=== PATIENT | female | born 1965 | race Caucasian/White ===

== ENCOUNTER → 2016-08-14 | Outpatient (CLI) | payer OTHER ==
[2016-08-14 17:52] LABS: HEMATOCRIT 42.1 % (36.0-47.0); HEMOGLOBIN 13.8 g/dL (12.0-15.5); HGB HCT DIFFERENCE -0.7; MEAN CORPUSCULAR HEMOGLOBIN 29.4 pg (27.0-33.4); MEAN CORPUSCULAR HGB CONC 32.8 g/dL (32.0-36.0); MEAN CORPUSCULAR VOLUME 90 fl (80-97); RED CELL DISTRIBUTION WIDTH 14.1 % (11.5-14.0); WHITE BLOOD COUNT 8.5 10^3/uL (4.0-10.5)
[2016-08-14 18:03] LABS: ALANINE AMINOTRANSFERASE 18 U/L (9-52); ALBUMIN 4.3 g/dL (3.5-5.0); ALKALINE PHOSPHATASE 111 U/L (38-126); ANION GAP 12 (5-19); ASPARTATE AMINO TRANSFERASE 17 U/L (14-36); BILIRUBIN,DIRECT 0.3 mg/dL (0.0-0.4); BILIRUBIN,TOTAL 0.4 mg/dL (0.2-1.3); BLOOD UREA NITROGEN 12 mg/dL (7-20); CALCIUM 9.7 mg/dL (8.4-10.2); CARBON DIOXIDE 27 mmol/L (22-30); CHLORIDE 99 mmol/L (98-107); CREATININE RESULT 0.78 mg/dL (0.52-1.25); GLUCOSE 79 mg/dL (75-110); POTASSIUM 4.4 mmol/L (3.6-5.0); SODIUM 138.2 mmol/L (137-145); TOTAL PROTEIN 7.8 g/dL (6.3-8.2)
== END ==
LOC: OD 16:35
PROVIDERS: ATTEND Obstetrics & Gynecology
DX: E03.9 Hypothyroidism, unspecified (principal); E55.9 Vitamin D deficiency, unspecified; E78.5 Hyperlipidemia, unspecified; I10 Essential (primary) hypertension; E66.9 Obesity, unspecified
CPT/HCPCS: 36415; 80053; 82306; 83036; 84443; 85027

== ENCOUNTER 2018-09-12 03:39 | Emergency (ER) | payer OTHER ==
[2018-09-12] MEDS ORDERED: ADENOSINE INJ/PF 6 MG/2 ML SDV IV ONE (03:59)
[2018-09-12] MEDS ORDERED: NORMAL SALINE 1000 ML 1,000 ML IV ONE (04:00)
[2018-09-12] MEDS ORDERED: MIDAZOLAM 2 MG/2 ML INJ ONE (04:03)
--- NOTE | 2018-09-12 04:03 | ER Document Report ---
ED General - General Chief Complaint: Palpitations Stated Complaint: HEART PROBLEMS Time Seen by Provider: 09/12/18 03:51 Primary Care Provider: CIRILO LYNN MD [ACTIVE STAFF] - Follow up as needed Notes: Patient is a pleasant 53-year-old female presents with complaint of SVT. She has a long history of SVT. She says usually can break out of it with vagal maneuver but occasionally has to have adenosine. She denies any chest pain or shortness of breath. She does feels palpitations. She did recently start a wor kout routine. She is unsure if she could be dehydrated or potentially having electrolyte abnormality. No other complaints at this time. Symptoms started 2 AM. TRAVEL OUTSIDE OF THE [place] IN LAST 30 DAYS: No - Related Data Allergies/Adverse Reactions: sulfamethoxazole [From ] Allergy (Verified 09/09/11 06:43) trimethoprim [From ] Allergy (Verified 09/09/11 06:43) Past Medical History - Social History Smoking Status: Never Smoker Frequency of alcohol use: None Drug Abuse: None Family History: Reviewed & Not Pertinent Past Surgical History: Reports: Hx Section - x2, Hx Cholecystectomy, Hx Thyroid Surgery - Immunizations Hx Diphtheria, Pertussis, Tetanus Vaccination: - unk Review of Systems - Review of Systems Notes: My Normal Review Basic REVIEW OF SYSTEMS: CONSTITUTIONAL : Denies fever, chills, or sweats. Denies recent illness. EENT: Denies eye, ear, throat, or mouth pain or symptoms. Denies nasal or sinus congestion. CARDIOVASCULAR: Rapid Heartbeat RESPIRATORY: Denies cough, cold, or chest congestion. Denies shortness of breath, difficulty breathing, or wheezing. GASTROINTESTINAL: Denies abdominal pain. Denies nausea, vomiting, or diarrhea. Denies constipation. Last BM: MUSCULOSKELETAL: Denies neck or back pain or joint pain or swelling. SKIN: Denies rash or skin lesions. NEUROLOGICAL: Denies altered mental status or loss of consciousness. Denies sensory or motor loss. ALL OTHER SYSTEMS REVIEWED AND NEGATIVE. Physical Exam - Vital signs Vitals: Resp BP Pulse Ox 25 H 155/114 H 96 09/12/18 03:52 09/12/18 03:52 09/12/18 03:52 - Notes Notes: General Appearance: Well nourished, alert, cooperative, no acute distress, no obvious discomfort. Well-appearing Vitals: reviewed, See vital signs table. Eyes: PERRL, EOMI, Conjuctiva clear Mouth: No decreasd moisture Lungs: No wheezing, No rales, No rhonci, No accessory muscle use, good air exchange bilaterally. Heart: Tachycardic rate, Regular rythm, No murmur, no rub Abdomen: Normal BS, soft, No rigidity, No abdominal tenderness, No guarding, no rebound, no abdominal masses, no organomegaly Extremities:good pulses in all extremities, no swelling or tenderness in the extremities, no edema. Skin: warm, dry, appropriate color, no rash Neuro: speech clear, oriented x 3, normal affect, responds appropriately to questions. Course - Re-evaluation Re-evalutation: 09/12/18 04:19 we tried vagal maneuvers but unfortunate this did not convert the patient. I therefore gave the patient adenosine 6 mg IV. This converted patient on first attempt without any concerning dysrhythmia. Patient is feeling improved. We will recheck electrolytes to make sure there is no abnormality. We will continue to have patient on monitor. 09/12/18 05:07 Patient has had no recurrence of arrhythmia. Her heart rate is now in the 80s and she is normal sinus rhythm and she is asymptomatic and looks well. She did not have any concerning symptoms during her episode and that she was not having chest pain, she was not significantly short of breath, she really did not have passing out. At this time I feel she safe to be discharged home. I strongly encouraged her to continue take her medications as prescribed. Encourage return to ER if she has recurrent SVT, recurrent palpitations, any chest pain, difficulty breathing, or if she feels unwell. Patient agrees with plan and will be discharged home. Dictation of this chart was performed using voice recognition software; therefore, there may be some unintended grammatical errors. - Vital Signs Vital signs: Temp Pulse Resp BP Pulse Ox 20 149/101 H 94 09/12/18 04:45 09/12/18 04:45 09/12/18 04:45 - Laboratory Result Diagrams: 09/12/18 03:54 Laboratory results interpreted by me: 09/12/18 03:54 Glucose 115 H - EKG Interpretation by Me Additional EKG results interpreted by me: 09/12/18 04:03 EKG is reviewed and interpreted by me. EKG shows SVT with rate of [address] segment elevation or depression. QRS duration and QT intervals are within normal range. No old EKG available for comparison. 09/12/18 04:28 EKG #2 is post adenosine administration. EKG shows sinus rhythm with a rate of [address] segment elevation or depression. No ischemic T wave inversions. WA interval, QRS duration, QTc intervals are within normal range. Discharge - Discharge Clinical Impression: SVT (supraventricular tachycardia) Condition: Good Disposition: HOME, SELF-CARE Additional Instructions: Your electrolytes are normal. No concerning findings on your blood work. Please continue take your medication for your SVT. Please stay well-hydrated. Please have a low threshold to return to the ER if you have chest pain, recurrent palpitations, difficulty breathing, or if you feel unwell. Referrals: CIRILO LYNN MD [ACTIVE STAFF] - Follow up in 3-5 days
[2018-09-12 04:19] LABS: ANION GAP 9 (5-19); BLOOD UREA NITROGEN 9 mg/dL (7-20); CALCIUM 9.9 mg/dL (8.4-10.2); CARBON DIOXIDE 25 mmol/L (22-30); CHLORIDE 107 mmol/L (98-107); GLUCOSE 115 mg/dL (75-110); POTASSIUM 4.2 mmol/L (3.6-5.0)
[2018-09-12 05:25] VITALS: BP 130/96
--- NOTE | 2018-09-12 11:12 | EKG REPORT ---
SEVERITY:- BORDERLINE ECG - SINUS TACHYCARDIA BORDERLINE RIGHT AXIS DEVIATION MINIMAL ST DEPRESSION, ANTEROLATERAL LEADS : Confirmed by: Ana Rodriguez MD 12-Sep-2018 11:11:46
--- NOTE | 2018-09-13 09:25 | EKG REPORT ---
SEVERITY:- OTHERWISE NORMAL ECG - SINUS RHYTHM RIGHT AXIS DEVIATION : Confirmed by: Ana Rodrigeuz MD 13-Sep-2018 09:25:08
== END 2018-09-12 05:30 | disposition home or self-care (01) ==
LOC: ER 03:39
DX: I47.1 Supraventricular tachycardia (principal); R00.2 Palpitations
CPT/HCPCS: 93005; 99285; 96374; 36415; 83735; 80048; 93010; J7030; J0153

== ENCOUNTER 2019-04-18 01:29 | Emergency (ER) | payer OTHER | END 2019-04-18 03:00 | disposition left against medical advice (07) | LOC: ER 01:29 | DX: Z53.21 Procedure and treatment not carried out due to patient leaving prior to being seen by health care provider (principal) ==

== ENCOUNTER 2019-04-18 03:38 | Emergency (ER) | payer OTHER ==
[2019-04-18] MEDS ORDERED: TRANEXAMIC ACID INJ/PF 1,000 MG/10 ML SDV IV ONE (05:08)
[2019-04-18] MEDS ORDERED: NORMAL SALINE 1000 ML 1,000 ML IV ONE (05:09)
--- NOTE | 2019-04-18 05:10 | ER Document Report ---
ED GI/ - General TRAVEL OUTSIDE OF THE [place] IN LAST 30 DAYS: No <NANCY FAYE - Last Filed: 04/18/19 08:18> <BRIGIDA MESSER - Last Filed: 04/18/19 14:51> - General Chief Complaint: Vaginal Bleeding Stated Complaint: VAGINAL BLEEDING Time Seen by Provider: 04/18/19 04:59 Primary Care Provider: [facility] [Provider Group] - Follow up in 3-5 days SERAFIN VEE MD [ACTIVE STAFF] - 04/19/19 PÉREZ LYNN NP [Primary Care Provider] - Follow up as needed Notes: Patient is a 53-year-old female that comes to the emergency department for chief complaint of heavy vaginal bleeding. She comes by EMS. She states that she started suddenly bleeding at 10 PM tonight, she states that since then she has bled through 12 super pads, she states she started getting lightheaded and became concerned. She has passed a lot of clots. She denies passing out. She reports mild cramping in the lower abdomen but denies severe pain. Her last menstrual cycle was last October. She is on aspirin but no other blood thinners. Remaining medical history includes hypertension, C-sections, cholecystectomy, thyroidectomy. (NANCY FAYE) - Related Data Allergies/Adverse Reactions: sulfamethoxazole [From Septra] Allergy (Verified 09/09/11 06:43) trimethoprim [From Septra] Allergy (Verified 09/09/11 06:43) Past Medical History - General Information source: Patient - Social History Smoking Status: Never Smoker Frequency of alcohol use: None Drug Abuse: None Lives with: Family Family History: Reviewed & Not Pertinent Patient has suicidal ideation: No Patient has homicidal ideation: No - Past Medical History Cardiac Medical History: Reports: Hx Hypertension Endocrine Medical History: Reports: Hx Hypothyroidism Renal/ Medical History: Denies: Hx Peritoneal Dialysis Past Surgical History: Reports: Hx Section - x2, Hx Cholecystectomy, Hx Thyroid Surgery - Immunizations Hx Diphtheria, Pertussis, Tetanus Vaccination: Yes - unk <NANCY FAYE - Last Filed: 04/18/19 08:18> Review of Systems - Review of Systems Constitutional: No symptoms reported EENT: No symptoms reported Cardiovascular: See HPI Respiratory: No symptoms reported Gastrointestinal: See HPI Genitourinary: No symptoms reported Female Genitourinary: See HPI Musculoskeletal: No symptoms reported Skin: No symptoms reported Hematologic/Lymphatic: No symptoms reported Neurological/Psychological: No symptoms reported <NANCY FAYE - Last Filed: 04/18/19 08:18> Physical Exam <NANCY FAYE - Last Filed: 04/18/19 08:18> - Vital signs Vitals: Pulse Ox 96 04/18/19 03:47 - Notes Notes: GENERAL: Alert, interacts well. No acute distress. HEAD: Normocephalic, atraumatic. EYES: Pupils equal, round, and reactive to light. Extraocular movements intact. ENT: Oral mucosa moist, tongue midline. Oropharynx unremarkable. Airway patent. LUNGS: Clear to auscultation bilaterally, no wheezes, rales, or rhonchi. No respiratory distress. HEART: Regular rate and rhythm. No murmur ABDOMEN: Soft, non-tender. Non-distended. Bowel sounds present in all 4 quadrants. GENITOURINARY: Clots intravaginally noted, minimal bleeding noted from what appears to be the cervix, no current heavy bleeding. No cervical motion tenderness or concerning findings otherwise. No discharge. Exam performed with Amanda BAZZI at bedside. EXTREMITIES: Moves all 4 extremities spontaneously. No edema, normal radial and dorsalis pedis pulses bilaterally. No cyanosis. BACK: no cervical, thoracic, lumbar midline tenderness. No saddle anesthesia, normal distal neurovascular exam. NEUROLOGICAL: Alert and oriented x3. Normal speech. Cranial nerves II through XII grossly intact. PSYCH: Normal affect, normal mood. SKIN: Warm, dry, normal turgor. No rashes or lesions noted. (NANCY FAYE) Course - Laboratory Result Diagrams: 04/18/19 06:00 04/18/19 06:00 <NANCY FAYE - Last Filed: 04/18/19 08:18> - Laboratory Result Diagrams: 04/18/19 09:19 04/18/19 06:00 - Diagnostic Test Radiology reviewed: Reports reviewed - EKG Interpretation by Me EKG shows normal: Sinus rhythm When compared to previous EKG there are: No significant change <BRIGIDA MESSER - Last Filed: 04/18/19 14:51> - Re-evaluation Re-evalutation: Patient is well-appearing, she is not hypotensive, she was given IV fluids and TXA. Shortly after this we perform pelvic exam, she does have some clots intravaginally but she does not have any noted current bleeding. CBC with unremarkable hemoglobin, nonspecific otherwise. Chemistry unremarkable. 04/18/19 We are still pending ultrasound results. On reevaluation patient is having some cramping, she states bleeding has slightly resumed as well after the ultrasound. Medication, CBC will be trended because of the amount of bleeding patient had tonight, results pending. Patient was introduced to Maya ESCOBAR at bedside. (NANCY FAYE) 04/18/19 10:[address] Ray regarding the patient's presentation ultrasound and laboratory studies. Dr. Ray recommends giving patient Provera 10 mg daily for 30 days and having her follow-up in the office for further evaluation. Provider to bedside to discuss plan of care with patient. Patient states that shortly after receiving the IV morphine she started to have chest discomfort. Patient states she looked at the monitor and it had an regular tracing to the monitor. Patient states she called out to let the nurse know at the time. This is the first time I have been made aware of patient's symptoms. Patient states she does have a burning sensation in her chest at this time. Provider reviewed alarms at the desk with escrow secretary and patient has only had respiratory rate alarms go off. Patient was advised that if she was moving to look at the monitor the movement could cause artifact making the tracing appear irregular. Patient without any previous arrhythmias noted on her EKG tracing. Will add on troponin and cardiac enzyme testing at this time. Patient does state that it c ould be that she has not eaten anything and that this is causing her to have some discomfort. Patient advised that she can have something to eat if she would like. 04/18/19 11:58 Patient reports that pain symptoms resolved after GI cocktail. Vital signs continue stable at this time. Presently awaiting results of troponin test. EKG reviewed without any acute changes. Chest x-ray reviewed without any acute findings. 04/18/19 12:47 Patient's troponin without any elevation, patient with improved symptoms after GI cocktail. Patient states that she could be having the discomfort due to not having anything to eat today. Patient with stable vital signs. Patient agreeable with discharge plan of care at this time. 04/18/19 12:49 Presentation of chest pain in an otherwise well appearing patient. Low clinical suspicion for ACS given clinical history, exam, EKG without ST elevations, and negative initial troponin. HEART score less than or equal to 3. PE also seems unlikely given clinical history, absence of tachycardia or dyspnea. Patient is PERC criteria negative. CXR without evidence of pneumothorax or pneumonia. Chest pain in a patient without evidence of cardiac or other serious etiology on workup today. I discussed with patient that, based on their age, risk factors and emergency department testing today, the likelihood that their symptoms are related to a heart attack is very low. The patient demonstrates decision making capacity and has verbalized an understanding of these risks to me. Based on this, the patient has chosen to follow-up as an outpatient. Usual chest pain return precautions reviewed. The patient states understanding and agreement with this plan. (BRIGIDA MESSER) - Vital Signs Vital signs: Temp Pulse Resp BP Pulse Ox 23 H 135/86 H 95 04/18/19 13:01 04/18/19 13:01 04/18/19 13:01 - Laboratory Laboratory results interpreted by me: 04/18/19 04/18/19 06:00 09:19 WBC 11.3 H Hct 35.9 L RDW 14.2 H 14.2 H Absolute Neuts (auto) 8.4 H 04/18/19 12:47 Labs- Entire Visit 04/18/19 04/18/19 04/18/19 06:00 06:00 06:00 WBC 11.3 H RBC 4.20 Hgb 13.0 Hct 37.7 MCV 90 MCH 30.9 MCHC 34.4 RDW 14.2 H Plt Count 222 Lymph % (Auto) 17.5 [place] % (Auto) 6.6 Eos % (Auto) 1.2 Baso % (Auto) 0.4 Absolute Neuts (auto) 8.4 H Absolute Lymphs (auto) 2.0 Absolute Monos (auto) 0.7 Absolute Eos (auto) 0.1 Absolute Basos (auto) 0.0 Seg Neutrophils % 74.3 Sodium 139.9 Potassium 4.3 Chloride 104 Carbon Dioxide 28 Anion Gap 8 BUN 16 Creatinine 0.88 Est GFR ( Amer) > 60 Est GFR (MDRD) Non-Af > 60 Glucose 108 Calcium 9.7 Total Bilirubin 0.3 Direct Bilirubin 0.3 Neonat Total Bilirubin Not Reportable Neonat Direct Bilirubin Not Reportable Neonat Indirect Bili Not Reportable AST 21 ALT 13 Alkaline Phosphatase 114 Troponin I Total Protein 7.2 Albumin 4.0 Blood Type A POSITIVE Antibody Screen NEGATIVE 04/18/19 04/18/19 04/18/19 06:00 09:19 11:15 WBC 10.5 RBC 3.99 Hgb 12.3 Hct 35.9 L MCV 90 MCH 30.9 MCHC 34.3 RDW 14.2 H Plt Count 198 Lymph % (Auto) [place] % (Auto) Eos % (Auto) Baso % (Auto) Absolute Neuts (auto) Absolute Lymphs (auto) Absolute Monos (auto) Absolute Eos (auto) Absolute Basos (auto) Seg Neutrophils % Sodium Potassium Chloride Carbon Dioxide Anion Gap BUN Creatinine Est GFR ( Amer) Est GFR (MDRD) Non-Af Glucose Calcium Total Bilirubin Direct Bilirubin Neonat Total Bilirubin Neonat Direct Bilirubin Neonat Indirect Bili AST ALT Alkaline Phosphatase Troponin I < 0.012 < 0.012 Total Protein Albumin Blood Type Antibody Screen (BRIGIDA MESSRE) - EKG Interpretation by Me Additional EKG results interpreted by me: 04/18/19 12:[address] elevation, QTc 423 (BRIGIDA MESSER) Discharge <NANCY FAYE - Last Filed: 04/18/19 08:18> <BRIGIDA MESSER - Last Filed: 04/18/19 14:51> - Discharge Clinical Impression: Vagina bleeding Chest pain Qualifiers: Chest pain type: unspecified Qualified Code(s): R07.9 - Chest pain, unspecified Condition: Stable Disposition: HOME, SELF-CARE Instructions: Chest Pain of Unclear Cause ([facility]), Vaginal Bleeding ([facility]) Additional Instructions: Return immediately for any new or worsening symptoms Followup with your primary care provider, call tomorrow to make a followup appointment Follow-up with truck washer for recheck, call Friday for an appointment You were seen today for chest pain. The exact cause of your pain is unclear. However, based on your cardiac enzyme testing, chest x-ray, and EKG it does not appear that it is from an immediately life-threatening cause at this time. Although your testing here is normal is critical that you follow-up with your primary care physician for continued evaluation of this chest pain and possible stress testing. I recommended you see your physician within the next 24-48 hours to be evaluated for consideration of a stress test. Please return to emergency department immediately if you have worsening of your chest pain, shortness of breath, vomiting, become unable to exert yourself due to pain or d ifficulty breathing, you pass out, or have any pain that radiates into your arms, jaw, or back. Please also return if you have any additional symptoms that are concerning to you. Prescriptions: Medroxyprogesterone Acet [Provera 10 Mg Tablet] 10 mg PO DAILY #30 tablet Referrals: PÉREZ LYNN NP [Primary Care Provider] - Follow up as needed [facility] [Provider Group] - Follow up in 3-5 days SERAFIN VEE MD [ACTIVE STAFF] - 04/19/19
[2019-04-18 06:25] LABS: ABSOLUTE EOSINOPHILS # (AUTO) 0.1 10^3/uL (0.0-0.6); ABSOLUTE MONOCYTES (AUTO) 0.7 10^3/uL (0.1-1.4); ABSOLUTE NEUT (AUTO) 8.4 10^3/uL (1.7-8.2); BASOPHILS % (AUTO) 0.4 % (0-2); EOSINOPHILS % (AUTO) 1.2 % (0-6); HEMATOCRIT 37.7 % (36.0-47.0); LYMPHOCYTES % (AUTO) 17.5 % (13-45); MEAN CORPUSCULAR HEMOGLOBIN 30.9 pg (27.0-33.4); MEAN CORPUSCULAR HGB CONC 34.4 g/dL (32.0-36.0); MEAN CORPUSCULAR VOLUME 90 fl (80-97); MONOCYTES % (AUTO) 6.6 % (3-13); PLATELET COUNT 222 10^3/uL (150-450); RED CELL DISTRIBUTION WIDTH 14.2 % (11.5-14.0); SEGMENTED NEUTROPHILS % (AUTO) 74.3 % (42-78); TOTAL CELLS COUNTED % (AUTO) 100 %; WHITE BLOOD COUNT 11.3 10^3/uL (4.0-10.5)
[2019-04-18 06:43] LABS: ALKALINE PHOSPHATASE 114 U/L (38-126); ANION GAP 8 (5-19); ASPARTATE AMINO TRANSFERASE 21 U/L (14-36); BILIRUBIN,DIRECT 0.3 mg/dL (0.0-0.4); BILIRUBIN,TOTAL 0.3 mg/dL (0.2-1.3); BLOOD UREA NITROGEN 16 mg/dL (7-20); CALCIUM 9.7 mg/dL (8.4-10.2); CARBON DIOXIDE 28 mmol/L (22-30); CHLORIDE 104 mmol/L (98-107); GLUCOSE 108 mg/dL (75-110); POTASSIUM 4.3 mmol/L (3.6-5.0); TOTAL PROTEIN 7.2 g/dL (6.3-8.2)
[2019-04-18] MEDS ORDERED: MORPHINE SULFATE 10 MG/ML INJ IV ONE (08:13)
[2019-04-18] MEDS ORDERED: ONDANSETRON HCL INJ/PF 4 MG/2 ML SDV IV ONE (08:13)
--- NOTE | 2019-04-18 08:29 | RADIOLOGY REPORT (SQ) ---
EXAM DESCRIPTION: U/S NON OB PEL TV W/DOPPLER COMPLETED DATE/TIME: 04/18/2019 7:39 am REASON FOR STUDY: very heavy vaginal bleeding COMPARISON: None. TECHNIQUE: Dynamic and static grayscale images acquired of the pelvis via transvaginal approach and recorded on PACS. Additional selected color Doppler and spectral images recorded. LIMITATIONS: None. FINDINGS: UTERUS: Contour normal. No mass. ENDOMETRIAL STRIPE: No focal or generalized thickening. No masses. CERVIX: There complex areas within the cervix measuring up to 3 cm. Question thrombus. Transvaginal study limited by these areas. RIGHT OVARY AND DOPPLER: Ovary not visualized. LEFT OVARY AND DOPPLER: Ovary not visualized. FREE FLUID: None noted. OTHER: No other significant finding. MEASUREMENTS: UTERUS: 8.3 cm ENDOMETRIAL STRIPE: 6.8 mm RIGHT OVARY: Not visualized. LEFT OVARY: Not visualized. IMPRESSION: Complex masses in the cervix possibly thrombus. Ovaries not identified. No significant finding in the uterus. TECHNICAL DOCUMENTATION: JOB ID: [id number] 2010 [employer]- All Rights Reserved -06/27 Reading location - IP/workstation name: [email or web address]
[2019-04-18 09:41] LABS: HEMATOCRIT 35.9 % (36.0-47.0); HEMOGLOBIN 12.3 g/dL (12.0-15.5); MEAN CORPUSCULAR HEMOGLOBIN 30.9 pg (27.0-33.4); MEAN CORPUSCULAR HGB CONC 34.3 g/dL (32.0-36.0); MEAN CORPUSCULAR VOLUME 90 fl (80-97); PLATELET COUNT 198 10^3/uL (150-450); RED BLOOD COUNT 3.99 10^6/uL (3.72-5.28); RED CELL DISTRIBUTION WIDTH 14.2 % (11.5-14.0); WHITE BLOOD COUNT 10.5 10^3/uL (4.0-10.5)
[2019-04-18] MEDS ORDERED: MEDROXYPROGESTERONE ACET 10 MG TABLET PO ONE (10:41)
[2019-04-18] MEDS ORDERED: LIDOCAINE 2% VISCOUS SOLN 15 ML UDCUP PO ONE (10:53)
[2019-04-18] MEDS ORDERED: MAG HYDROX/AL HYDROX/SIMETH SUSP 30 ML UDCUP PO ONE (10:53)
--- NOTE | 2019-04-18 11:39 | RADIOLOGY REPORT (SQ) ---
EXAM DESCRIPTION: CHEST SINGLE VIEW COMPLETED DATE/TIME: 04/18/2019 11:13 am REASON FOR STUDY: cp COMPARISON: None. EXAM PARAMETERS: NUMBER OF VIEWS: One view. TECHNIQUE: Single frontal radiographic view of the chest acquired. RADIATION DOSE: NA LIMITATIONS: None. FINDINGS: LUNGS AND PLEURA: No opacities, masses or pneumothorax. No pleural effusion. MEDIASTINUM AND HILAR STRUCTURES: No masses. Contour normal. HEART AND VASCULAR STRUCTURES: Heart normal in size. Normal vasculature. BONES: No acute findings. HARDWARE: None in the chest. OTHER: No other significant finding. IMPRESSION: NO ACUTE RADIOGRAPHIC FINDING IN THE CHEST. TECHNICAL DOCUMENTATION: JOB ID: [id number] 2010 [employer]- All Rights Reserved Reading location - IP/workstation name: [email or web address]
[2019-04-18 13:09] VITALS: BP 135/86
--- NOTE | 2019-04-18 16:10 | EKG REPORT ---
SEVERITY:- BORDERLINE ECG - SINUS RHYTHM PROBABLE LEFT ATRIAL ABNORMALITY NONSPECIFIC T INVERSIONS ANTERIOR LEADS. : Confirmed by: Ezequiel Brown MD 18-Apr-2019 16:09:41
== END 2019-04-18 13:13 | disposition home or self-care (01) ==
LOC: ER 03:38
DX: N93.9 Abnormal uterine and vaginal bleeding, unspecified (principal); R07.9 Chest pain, unspecified; R42 Dizziness and giddiness; R10.30 Lower abdominal pain, unspecified; I10 Essential (primary) hypertension; Z79.82 Long term (current) use of aspirin; Z88.1 Allergy status to other antibiotic agents
CPT/HCPCS: 93005; 99285; 96361; 96374; 96375; 86900; 86901; 36415; 86850; 85025; 80053; 84484; 71045; 76830; 93976; 93010; J3490 ×3; J2270; J2405; J7030

== ENCOUNTER 2019-04-22 05:22 | Day surgery (SDC) | payer OTHER ==
[2019-04-22] MEDS ORDERED: CEFAZOLIN 1 GM/D5W RTU 1 GM/50 ML RTUPB IV PRN (05:49)
[2019-04-22 05:57] LABS: APPEARANCE,URINE SLIGHTLY-CLOUDY; BILIRUBIN,URINE NEGATIVE (NEGATIVE); COLOR,URINE YELLOW; GLUCOSE, URINE NEGATIVE (NEGATIVE); KETONES,URINE NEGATIVE (NEGATIVE); LEUKOCYTE ESTERASE,URINE LARGE (NEGATIVE); NITRITE,URINE NEGATIVE (NEGATIVE); PROTEIN,URINE 30 mg/dL (NEGATIVE); URINE SPECIFIC GRAVITY 1.021; UROBILINOGEN,URINE NEGATIVE mg/dL (<2.0)
[2019-04-22 06:04] LABS: ADD MANUAL MICROSCOPIC YES; RBC,URINE 20-30 /HPF; WBC,URINE 20-30 /HPF
[2019-04-22 06:05] LABS: BACTERIA,URINE 2+ /HPF
[2019-04-22] MEDS ORDERED: CEFAZOLIN 1 GM/D5W RTU 1 GM/50 ML RTUPB IV ONE (06:23)
[2019-04-22] MEDS ORDERED: ONDANSETRON HCL INJ/PF 4 MG/2 ML SDV ONE (07:01)
[2019-04-22] MEDS ORDERED: PROPOFOL INJ 200 MG/20 ML VIAL IV ONE (07:01)
[2019-04-22] MEDS ORDERED: MIDAZOLAM 2 MG/2 ML INJ ONE (07:01)
[2019-04-22] MEDS ORDERED: FENTANYL CITRATE INJ/PF 100 MCG/2 ML AMPUL ONE (07:01)
[2019-04-22] MEDS ORDERED: MORPHINE SULFATE 10 MG/ML INJ IV PRN (07:31)
[2019-04-22] MEDS ORDERED: PROMETHAZINE HCL INJ 25 MG/1 ML VIAL IV PRN (07:31)
[2019-04-22] MEDS ORDERED: MEPERIDINE HCL/PF INJ 25 MG/1 ML DISP.SYRIN IV PRN (07:31)
[2019-04-22] MEDS ORDERED: FENTANYL CITRATE INJ/PF 100 MCG/2 ML AMPUL IV PRN ×3 (07:31)
[2019-04-22] MEDS ORDERED: DIPHENHYDRAMINE HCL 50 MG/ML VIAL IV PRN (07:31)
--- NOTE | 2019-04-22 08:00 | Operative Report ---
Operative Report DATE OF SURGERY: 04/22/19 PREOPERATIVE DIAGNOSIS: Vaginal bleeding vaginal bands POSTOPERATIVE DIAGNOSIS: Same OPERATION: Exam under anesthesia hysteroscopy endometrial biopsy cervical biopsy vaginal wall biopsy SURGEON: CEFERINO PAEZ 1ST PROFESSOR OF COUNSELING: RAVEN GALEANO ANESTHESIA: GA TISSUE REMOVED OR ALTERED: Endometrial tissue cervical tissue vaginal wall t issue ESTIMATED BLOOD LOSS: Less than 5 cc PROCEDURE: Patient was placed in dorsolithotomy tissue prepped draped sterile fashion. Under anesthesia revealed type circumferential bands approximately 3 cm inside the introitus and the anterior portion of the cervix was adhesions to the anterior abdominal wall and there appeared to be scarring in the posterior cul-de-sac. Using a Lewis speculum cervix visualized grasped with single- tooth tenaculum and sounded to a depth of 7 cm. The cervix was dilated and hysteroscope was then placed with visualization of the endometrium. The uterine cavity appeared to be atrophic and no polyps are other overt abnormalities were noted. Hysteroscope was removed and a endometrial biopsy was done with a scant amount of tissue being recovered. Random cervical biopsies were then done. And the bands in the vaginal wall were then biopsied. Hemostasis was noted. Lidocaine gel was placed in the vagina. Patient terminated and she was taken to recovery room in good condition
[2019-04-22] MEDS: FENTANYL CITRATE INJ/PF 100 MCG/2 ML AMPUL ONE ×2 (08:05→08:13)
[2019-04-22] MEDS ORDERED: ONDANSETRON HCL 8 MG TABLET PO PRN (08:17)
[2019-04-22] MEDS ORDERED: OXYCODONE-ACETAMINOPHEN 5-325 MG TABLET PO PRN (08:17)
[2019-04-22] MEDS ORDERED: IBUPROFEN 800 MG TABLET ONE (08:43)
[2019-04-22] MEDS ORDERED: IBUPROFEN 800 MG TABLET PO SCH (10:00)
[2019-04-22 10:15] VITALS: BP 140/99
== END 2019-04-22 09:35 | disposition home or self-care (01) ==
LOC: OROUT 05:22
PROVIDERS: ATTEND Obstetrics & Gynecology Gynecology
DX: N92.1 Excessive and frequent menstruation with irregular cycle (principal); I10 Essential (primary) hypertension; Z79.899 Other long term (current) drug therapy; N76.1 Subacute and chronic vaginitis; E89.0 Postprocedural hypothyroidism
CPT/HCPCS: 36415; 84443; 81025; 81001; 83001; 88305 ×2; 00952; 58558; J2250; J0690; J3010; J2405; J2704; 952